=== PATIENT | male | born 1990 | race Caucasian/White ===

== ENCOUNTER 2021-08-18 13:40 | Emergency (ER) | payer OTHER ==
[~2021-08-18] VITALS: Ht 182.9 cm; Wt 81.6 kg
[2021-08-18] MEDS ORDERED: AMOX1TAB16 PO (13:58)
--- NOTE | 2021-08-18 14:09 | NUR ---
PATIENT CAME INTO THE ED WITH A C/C OF SHORTNESS OF BREATH AND A FAST HEART RATE. PATIENT ONLY HAVE A HISTORY OF HTN. PATIENT IS ON MONITORS. DENIES, N/V/D AND CHEST PAIN. PENDING MD ORDERS.
[2021-08-18] MEDS ORDERED: IV NORMAL SALINE 1000 ML BAG IV ONE (14:15)
--- NOTE | 2021-08-18 14:15 | NUR ---
18 G ESTABLISHED IN THE LEFT AC
--- NOTE | 2021-08-18 14:17 | NUR ---
Note olga lidia in EDM - 08/18/21 at 1920 by MAMIE PATIENT CAME INTO THE ED WITH A C/C OF SHORTNESS OF BREATH AND A FAST HEART RATE. PATIENT ONLY HAVE A HISTORY OF HTN. PATIENT IS ON MONITORS. DENIES, N/V/D AND CHEST PAIN. PENDING MD ORDERS.
--- NOTE | 2021-08-18 14:25 | NUR ---
Adrian duggan in [facility] - 08/18/21 at 1921 by MAMIE 18 G ESTABLISHED IN THE LEFT AC
[2021-08-18 14:44] LABS: HEMATOCRIT 44.4 % (36.7-47.1); MEAN CORPUSCULAR HEMOGLOBIN 33.7 uug (23.8-33.4); MEAN CORPUSCULAR VOLUME 95.1 fL (73.0-96.2); PLATELET COUNT (AUTO) 286 K/uL (152-348)
[2021-08-18 15:01] LABS: *MONOTEST POSITIVE (NEGATIVE)
[2021-08-18 15:04] LABS: CREATININE 1.3 mg/dL (0.6-1.3); POTASSIUM 3.8 mmol/L (3.5-5.1)
[2021-08-18 15:10] LABS: BILIRUBIN,DIRECT 0.1 mg/dL (0.0-0.2); BILIRUBIN,TOTAL 0.4 mg/dL (0.2-1.0); TOTAL PROTEIN, SERUM 9.1 g/dL (6.4-8.2)
[2021-08-18] MEDS ORDERED: ACETAMINOPHEN ES 500 MG TABLET PO ONE (16:15)
[2021-08-18] MEDS ORDERED: IV NS 1000 ML 1,000 ML IV ONE (16:15)
[2021-08-18] MEDS ORDERED: ACETAMINOPHEN ES 500 MG TABLET ONE (16:50)
--- NOTE | 2021-08-18 18:30 | NUR ---
PATIENT BEING DISCHARGED BACK HOME AND VERBALIZES UNDERSTANDING. PATIENT IS AMBULATORY, STEADY GAIT, AAOX4, DENIES SOB, NAD NOTED, DENIES N/V/D. IV DC'D, ARMBAND REMOVED. EDUCATED PATIENT TO FOLLOW-UP WITH PRIMARY WITHIN 2-3 AND TO RETURN TO THE ED FOR WORSENING PROBLEMS. PATIENT LEFT WITH BELONGINS.
== END 2021-08-18 19:27 | disposition home or self-care (01) ==
LOC: ER 13:40
DX: B27.90 Infectious mononucleosis, unspecified without complication (principal); R00.0 Tachycardia, unspecified
CPT/HCPCS: 36415; 70030-TC; 71045; 83605; 85025; 86308; 87040; 93005; A4663; A9150; J7030